=== PATIENT | male | born 1965 | race Caucasian/White ===

== ENCOUNTER 2023-07-27 05:17 | Day surgery (SDC) | payer OTHER ==
[2023-07-26 09:32] VITALS: BMI 25.9
[2023-07-27 11:19] VITALS: RESP 18; TEMP 98.4
[2023-07-27 12:18] VITALS: BP 113/72; PULSE 62
== END 2023-07-27 12:18 | disposition home or self-care (01) ==
LOC: JASU-ENDO 05:17
PROVIDERS: ATTEND Internal Medicine Gastroenterology
PROC: 0DBL8ZX Excision of Transverse Colon, Via Natural or Artificial Opening Endoscopic, Diagnostic (ICD-10-PCS; principal; 2023-07-27 11:00)
DX: Z12.11 Encounter for screening for malignant neoplasm of colon (principal); D12.3 Benign neoplasm of transverse colon; K64.8 Other hemorrhoids
CPT/HCPCS: 88305-TC